=== PATIENT | male | born 1980 | race Caucasian/White ===

== ENCOUNTER 2016-10-17 12:37 | Emergency (ER) | payer SELFPAY ==
[2016-10-17 12:40] VITALS: BP 154/98; BMI 37.7
[2016-10-17] MEDS ORDERED: TORADOL 60 MG VIAL IM ONE (13:19)
--- NOTE | 2016-10-17 13:19 | DR.GENAD ---
HPI - PCP Primary Care Physician: CLINT - Complaint/Symptoms Chief Complaint Doctors Comments: Patient presents with complaint of low back pain for three days. He has a history of disc bulging at L4-L5 with bilateral facet arthropathy and L5-L6 disc protrusion with contributes along with some spondylitic change and facet arthropathy. Chief Complaint:: LOWER BACK PAIN TIMES 2 DAYS - Source History Provided: Patient - Mode of Arrival Mode of Arrival: Ambulatory - Timing Onset of Chief Complaint: 10/15/16 PMH - PMH Past Medical History: Yes Past Medical History: Hypertension Past Medical History Comment: BACK PAIN Past Surgical History: Yes Surgical History: Cholecystectomy - Family History History of Family Medical Conditions: Yes Family Medical History: Diabetes Mellitus, Cancer, [place], Hypertension - Social History Does patient currently use any type of tobacco product: No Have you used tobacco products in the last 12 months: No Type of Tobacco Use: None Does any household member use tobacco: No Alcohol Use: None Do you use any recreational Drugs:: No Lives With: Family Lives Where: Home - infectious screening In the last 2 months have you had wt loss of >10#?: NO Have you had fever, night sweats or hemotysis?: No Have you traveled outside the country in the last 6 months?: No Isolation: Standard ROS - Review of Systems Eyes: No Symptoms Reported ENTM: No Symptoms Reported Respiratoy: No Symptoms Reported Cardiovascular: No Symptoms Reported Gastrointestinal/Abdominal: No Symptoms Reported Genitourinary: No Symptoms Reported Neurological: No Symptoms Reported Musculoskeletal: No Symptoms Reported PE - Vital Signs Vitals: Temperature 98.2 F Pulse Rate 105 Respiratory Rate 20 Blood Pressure [Right Arm] 121/82 Blood Pressure 154/98 O2 Sat by Pulse Oximetry 96 - Discharge Plan Condition: Stable - Follow ups/Referrals Follow ups/Referrals: Chitra JARAMILLO [Primary Care Provider] - 3 days - Instructions
[2016-10-17] MEDS ORDERED: TORADOL 60 MG VIAL ONE (13:25)
== END 2016-10-17 13:44 | disposition home or self-care (01) ==
LOC: ER 12:48
DX: M51.36 Other intervertebral disc degeneration, lumbar region (principal)
CPT/HCPCS: 96372; 99282; J1885

== ENCOUNTER 2017-05-15 19:35 | Emergency (ER) | payer OTHER ==
[2017-05-15 19:42] VITALS: BP 160/84; BMI 35.6
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
[2017-05-15] MEDS ORDERED: TORADOL 60 MG VIAL IM ONE (20:32)
[2017-05-15] MEDS ORDERED: TORADOL 60 MG VIAL ONE (20:34)
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
== END 2017-05-15 21:32 | disposition home or self-care (01) ==
LOC: ER 19:55
DX: M54.5 Low back pain (principal); M79.1 Myalgia; V87.7XXA Person injured in collision between other specified motor vehicles (traffic), initial encounter
CPT/HCPCS: 72110; 96372; 99282; J1885

== ENCOUNTER 2017-08-01 22:14 | Emergency (ER) | payer SELFPAY ==
[2017-08-01] MEDS ORDERED: ASPIRIN 81 MG CHEWTAB PO ONE (22:19)
[2017-08-01] MEDS: NITROSTAT SL PRN ×2 (22:21→22:26)
--- NOTE | 2017-08-01 22:26 | DR.CP ---
HPI - Time Seen Time seen: 22:35 - Complaint Chief Complaint Doctor Comments: Patient presents with complaint of mid sternal chest evaluation of chest pain, sharp, non radiation that comes and goes. There was no diaphoresis or nausea.Patient's chest pain was relieved one one NTG. Patient admits to having prior episodes about five years ago. He denies alcohol or cigarettes. PMH - PMH Past Medical History: Hypertension Past Surgical History: Yes Surgical History: Cholecystectomy - Family History Family Medical History: Diabetes Mellitus, Cancer, [place], Hypertension - Social History Do you use any recreational Drugs:: No ROS - Review of Systems Eyes: No Symptoms Reported ENTM: No Symptoms Reported Respiratoy: No Symptoms Reported Cardiovascular: No Symptoms Reported Gastrointestinal/Abdominal: No Symptoms Reported Genitourinary: No Symptoms Reported Neurological: No Symptoms Reported Musculoskeletal: No Symptoms Reported Integumentary: No Symptoms Reported Hematologic/Lymphatic: No Symptoms Reported Endocrine: No Symptoms Reported Psychiatric: No Symptoms Reported All Other Systems: Reviewed and Negative PE - Vitals Vitals: Temperature 98.3 F Pulse Rate [Left] 98 Pulse Rate 93 Respiratory Rate 15 Blood Pressure [Left Arm] 138/87 Blood Pressure [Right Arm] 121/82 Blood Pressure 197/112 O2 Sat by Pulse Oximetry 93 - General General Appearance: Alert, In No Apparent Distress - Head Head Exam: Normal Inspection, Atraumatic - Eyes Eye exam: Normal Appearance, PERRL, EOMI - ENT ENT Exam: Normal Exam - Chest Chest Inspection: Normal Inspection - Respiratory Respiratory Exam: Normal Lung Sounds Bilat Respiratory Exam: Bilateral Clear to Auscultation - Cardiovascular Cardiovascular Exam: Regular Rate, Normal Rhythm Pulse: Normal Edema: negative: Normal - Abdominal Exam Abdominal Exam: Normal Inspection, Normal Bowel Sounds Abdominal Tenderness: negative: RUQ, RLQ, LUQ, LLQ, Epigastrium, Suprapubic, Diffuse, Mild, Moderate, Severe, Other - Extremities Extremities Exam: Normal Inspection, Full ROM - Back Back Exam: Normal Inspection, Full ROM - Neurologic Neurological Exam: Alert, Oriented X3, CN II-XII Intact - Psychiatric Psychiatric Exam: Normal Affect, Normal Mood - Skin Skin Exam: Warm, Dry, Intact Course - Reevaluation 1st: Improved - Consultation Called: 23:10 (Dr Reyes agreed to admit for chest pain protocol) ROR - Labs Reviewed Laboratory Results Reviewed?: Yes (low potassium) Result Diagrams: 08/01/17 22:20 08/01/17 22:20 Laboratory: WBC 10.6 X10^3/uL (3.6-10.0) H 08/01/17 22:20 RBC 4.75 X10^6/uL (4.7-6.0) 08/01/17 22:20 Hgb 14.9 g/dL (13.5-18.0) 08/01/17 22:20 Hct 42.4 % (42.0-54.0) 08/01/17 22:20 MCV 89.4 fL (80.0-100.0) 08/01/17 22:20 MCH 31.4 pg (27.0-34.0) 08/01/17 22:20 MCHC 35.1 g/dL (33.0-35.0) H 08/01/17 22:20 RDW 12.5 % (11.6-16.5) 08/01/17 22:20 Plt Count 334 X10^3/uL (150.0-450.0) 08/01/17 22:20 MPV 8.8 fL (7.4-11.0) 08/01/17 22:20 Neut % (Auto) 52.0 % (42.0-75.0) 08/01/17 22:20 Lymph % (Auto) 33.9 % (21.0-51.0) 08/01/17 22:20 Bea[place]gard % (Auto) 7.4 % (0.0-13.0) 08/01/17 22:20 Eos % (Auto) 6.0 % (0.9-2.9) H 08/01/17 22:20 Baso % (Auto) 0.7 % (0.2-1.0) 08/01/17 22:20 Neut # (Auto) 5.5 x10^3/uL (2.2-4.8) H 08/01/17 22:20 Lymph # (Auto) 3.6 X10^3/uL (1.3-2.9) H 08/01/17 22:20 [place]gard # (Auto) 0.8 x10^3/uL (0.3-0.8) 08/01/17 22:20 Eos # (Auto) 0.6 x10^3/uL (0.0-0.2) H 08/01/17 22:20 Baso # (Auto) 0.1 X10^3/uL (0.0-0.1) 08/01/17 22:20 Absolute Nucleated RBC 0.1 /100WBC 08/01/17 22:20 INR Target Range - 08/01/17 22:20 INR 0.95 (0.8-1.3) 08/01/17 22:20 APTT 24.5 SECONDS (22.9-36.5) 08/01/17 22:20 PTT Comment - 08/01/17 22:20 Sodium 142 mmol/L (136-145) 08/01/17 22:20 Corrected Sodium TNP 08/01/17 22:20 Potassium 3.3 mmol/L (3.5-5.1) L 08/01/17 22:20 Chloride 103 mmol/L (98-107) 08/01/17 22:20 Carbon Dioxide 29.4 mmol/L (21-32) 08/01/17 22:20 BUN 9 mg/dL (7-18) 08/01/17 22:20 Creatinine 1.44 mg/dL (0.70-1.30) H 08/01/17 22:20 Est GFR (MDRD) Af Amer > 60 (>60) 08/01/17 22:20 Est GFR (MDRD) Non-Af 58 (>60) L 08/01/17 22:20 Glucose 110 mg/dL (65-99) H 08/01/17 22:20 Calcium 9.1 mg/dL (8.5-10.1) 08/01/17 22:20 Corrected Calcium TNP 08/01/17 22:20 Magnesium 1.8 mg/dL (1.7-2.9) 08/01/17 22:20 Total Bilirubin 0.30 mg/dL (0.2-1.0) 08/01/17 22:20 AST 18 Units/L (15-37) 08/01/17 22:20 ALT 34 Units/L (12-78) 08/01/17 22:20 Alkaline Phosphatase 74 Units/L (46-116) 08/01/17 22:20 Creatine Kinase 83 Units/L (39-308) 08/01/17 22:20 CK-MB (CK-2) < 1.0 ng/mL (0-4.0) 08/01/17 22:20 CK/CKMB % Calc 1.2 % (<4) 08/01/17 22:20 Troponin I < 0.02 ng/mL (0-1.5) 08/01/17 22:20 Total Protein 8.2 g/dL (6.4-8.2) 08/01/17 22:20 Albumin 4.0 g/dL (3.4-5.0) 08/01/17 22:20 Globulin 4.2 g/dL (2.5-4.5) 08/01/17 22:20 Albumin/Globulin Ratio 1.0 Ratio (1.1-2.1) L 08/01/17 22:20 - XRAY XRAY Interpreted by: Radiologist (Chest: No acute cardiopulmonary abnormality) - Diagnosis Discharge Problem: Hypokalemia Chest pain Qualifiers: Chest pain type: unspecified Qualified Code(s): R07.9 - Chest pain, unspecified - Discharge Plan Condition: Stable - Follow ups/Referrals Follow ups/Referrals: Chitra JARAMILLO [Primary Care Provider] - 3 days - Instructions
[2017-08-01] MEDS ORDERED: NITROSTAT SL ONE (22:28)
[2017-08-01] MEDS ORDERED: ASPIRIN 81 MG CHEWTAB ONE (22:28)
[2017-08-01 22:35] VITALS: BMI 37.2
[2017-08-01 22:48] LABS: BLOOD UREA NITROGEN 9 mg/dL (7-18); CALCIUM 9.1 mg/dL (8.5-10.1); CARBON DIOXIDE 29.4 mmol/L (21-32); CHLORIDE 103 mmol/L (98-107); CREATININE 1.44 mg/dL (0.70-1.30); SODIUM 142 mmol/L (136-145); TROPONIN I < 0.02 ng/mL (0-1.5); eGFR BLACK RACES > 60 (>60); eGFR NON BLACK RACES 58 (>60)
--- NOTE | 2017-08-01 22:50 | RAD ---
AP Chest Indication: Chest pain Comparison: 04/22/2016 Findings: The trachea is midline. The cardiac silhouette is unremarkable. The lungs are clear without focal i nfiltrate or effusion. The bony thorax is unremarkable. IMPRESSION: 1. No acute cardiopulmonary abnormality. Reported By:
[2017-08-01 22:52] LABS: ALANINE AMINOTRANSFERASE 34 Units/L (12-78); ALKALINE PHOSPHATASE 74 Units/L (46-116); ASPARTATE AMINO TRANSFERASE 18 Units/L (15-37); CKMB % 1.2 % (<4); CREATINE KINASE 83 Units/L (39-308); CREATINE KINASE MB < 1.0 ng/mL (0-4.0); MAGNESIUM 1.8 mg/dL (1.7-2.9); TOTAL PROTEIN 8.2 g/dL (6.4-8.2)
[2017-08-01] MEDS ORDERED: K-LYTE EFFERVESCENT PO STA (23:06)
[2017-08-01] MEDS ORDERED: K-LYTE EFFERVESCENT ONE (23:10)
[2017-08-01 23:24] LABS: BASOPHILS # (AUTO) 0.1 X10^3/uL (0.0-0.1); BASOPHILS % (AUTO) 0.7 % (0.2-1.0); EOSINOPHILS # (AUTO) 0.6 x10^3/uL (0.0-0.2); HEMATOCRIT 42.4 % (42.0-54.0); HEMOGLOBIN 14.9 g/dL (13.5-18.0); LYMPHOCYTES # (AUTO) 3.6 X10^3/uL (1.3-2.9); LYMPHOCYTES % (AUTO) 33.9 % (21.0-51.0); MEAN CORPUSCULAR HEMOGLOBIN 31.4 pg (27.0-34.0); MEAN CORPUSCULAR HGB CONC 35.1 g/dL (33.0-35.0); MEAN CORPUSCULAR VOLUME 89.4 fL (80.0-100.0); MEAN PLATELET VOLUME 8.8 fL (7.4-11.0); MONOCYTES # (AUTO) 0.8 x10^3/uL (0.3-0.8); MONOCYTES % (AUTO) 7.4 % (0.0-13.0); NEUTROPHILS # (AUTO) 5.5 x10^3/uL (2.2-4.8); PLATELET COUNT 334 X10^3/uL (150.0-450.0); RED BLOOD COUNT 4.75 X10^6/uL (4.7-6.0); RED CELL DISTRIBUTION WIDTH 12.5 % (11.6-16.5); WHITE BLOOD COUNT 10.6 X10^3/uL (3.6-10.0)
[2017-08-02 00:52] VITALS: BP 137/95
== END 2017-08-02 00:17 | disposition left against medical advice (07) ==
LOC: ER 22:18 → ICU 23:36 → UNDOADMOB 23:36 → ICU 08-02 00:17
DX: R07.89 Other chest pain (principal); E87.6 Hypokalemia; R94.31 Abnormal electrocardiogram [ECG] [EKG]
CPT/HCPCS: 36415; 71045; 80053; 82550; 82553; 83735; 84484; 85025; 85610; 85730; 93005; 93010; 96365; 99284; 99285; A4216; A4222